=== PATIENT | female | born 1970 | race Caucasian/White ===

== ENCOUNTER 2021-04-12 09:22 | Day surgery (SDC) | payer MEDICARE, MEDICAID ==
[~2021-04-12] VITALS: Ht 157.5 cm; Wt 73.9 kg
[~2021-04-12 09:22] MED LIST: ATOR1TAB19 PO; HYDR-3490 PO; LR 1,000 ML IV ONE; METF500T13 PO; MONT10TA97 PO; OXYB5TAB10 PO; POTA1TAB23 PO; VENL150C43 PO
[2021-04-12] MEDS ORDERED: LIDOCAINE W/EPINEPHRINE 1% 20ML VIAL As Ordered ONE (10:00)
[2021-04-12] MEDS ORDERED: fentaNYL 100 MCG/2 ML INJECTION As Ordered ONE (10:47)
[2021-04-12] MEDS ORDERED: MIDAZOLAM INJ 2MG/2ML VIAL (J2250 PER 1MG) As Ordered ONE (10:47)
[2021-04-12] MEDS ORDERED: ONDANSETRON 4MG/2ML VIAL As Ordered ONE (10:48)
[2021-04-12] MEDS ORDERED: propofoL 200 MG/20 ML VIAL As Ordered ONE (10:48)
[2021-04-12] MEDS ORDERED: dexameTHASONE 4 MG/ML 1ML VIAL (J1100 PER 1MG) As Ordered ONE (10:48)
[2021-04-12] MEDS ORDERED: LIDOCAINE 2% 100MG/5ML SDV (FOR ANES.) As Ordered ONE (10:48)
[2021-04-12] MEDS ORDERED: ROCURONIUM BROMIDE 50 MG/5 ML VIAL As Ordered ONE (10:49)
[2021-04-12] MEDS ORDERED: SUGAMMADEX SODIUM 500 MG/5 ML VIAL (BRIDION) As Ordered ONE (12:19)
[2021-04-12] MEDS ORDERED: ACETAMINOPHEN *IV* 1,000 MG in IV 1 EA IV STA (12:57)
[2021-04-12] MEDS ORDERED: fentaNYL 100 MCG/2 ML INJECTION IV PRN (13:20)
[2021-04-12] MEDS ORDERED: LR 1,000 ML IV SCH ×2 (13:20)
[2021-04-12] MEDS ORDERED: oxyCODONE 5MG TAB PO PRN (13:20)
[2021-04-12 14:00] VITALS: BP 130/72
== END 2021-04-12 14:15 | disposition home or self-care (01) ==
LOC: M SDC 09:22 → EDSEX 12:30 → M SDC 14:15
PROVIDERS: ATTEND Dentist Oral and Maxillofacial Surgery
DX: K02.9 Dental caries, unspecified (principal); F79 Unspecified intellectual disabilities; I10 Essential (primary) hypertension; E78.5 Hyperlipidemia, unspecified; F41.9 Anxiety disorder, unspecified; F32.9 Major depressive disorder, single episode, unspecified; Z79.899 Other long term (current) drug therapy
CPT/HCPCS: 41899; 88300; J0131; J1100; J2250; J2405; J3010